=== PATIENT | female | born 2000 | race Caucasian/White ===

== ENCOUNTER → 2020-07-13 | Outpatient (CLI) | payer OTHER ==
[2020-07-13 13:51] LABS: FOLLICLE STIMULATING HORMONE 13.8 mIU/mL; FREE T4 1.01 NG/DL (0.76-1.46); LUTEINIZING HORMONE 67.7 mIU/mL; PROLACTIN 19.1 NG/ML; THYROID STIMULATING HORMONE 1.61 uIU/ML (0.358-3.740)
== END ==
LOC: M PLALAB 12:03
PROVIDERS: ATTEND Specialist
DX: N92.6 Irregular menstruation, unspecified (principal)

== ENCOUNTER → 2020-10-13 | Outpatient (REF) | payer OTHER | LOC: M SFHCWAGY 12:56 | PROVIDERS: ATTEND Nurse Practitioner Family | DX: Z12.4 Encounter for screening for malignant neoplasm of cervix (principal) | CPT/HCPCS: 87490; 87590; 87624; 87661; G0123; G0463 ==

== ENCOUNTER 2021-05-23 16:44 | Emergency (ER) | payer OTHER ==
[~2021-05-23] VITALS: Ht 162.6 cm; Wt 93.0 kg
[2021-05-23 16:47] VITALS: BP 131/81
[2021-05-23] MEDS ORDERED: IBUP200C25 PO (16:54)
[2021-05-23] MEDS ORDERED: CLOM50TA9 (16:54)
[2021-05-23] MEDS ORDERED: AUGMENTIN 875 MG TAB PO ONE (19:10)
[2021-05-23] MEDS ORDERED: AUGM875T28 PO (19:11)
== END 2021-05-23 19:36 | disposition home or self-care (01) ==
LOC: M ED 16:44
DX: K02.9 Dental caries, unspecified (principal); Z88.8 Allergy status to other drugs, medicaments and biological substances

== ENCOUNTER → 2021-07-26 | Outpatient (CLI) | payer OTHER ==
[~2021-07-26] MED LIST: AUGM875T28 PO; CLOM50TA9; IBUP200C25 PO
[2021-07-26 15:59] LABS: HEMATOCRIT 41.2 % (36.0-47.0); HEMOGLOBIN 13.5 g/dl (12.0-15.5); MEAN CORPUSCULAR HGB CONC 32.8 g/dl (32.0-36.5); MEAN CORPUSCULAR VOLUME 85.3 fl (80.0-96.0); PLATELET COUNT, AUTOMATED 297 10^3/uL (150-450); RED BLOOD COUNT 4.83 10^6/uL (4.00-5.40); WHITE BLOOD COUNT 11.1 10^3/uL (4.0-10.0)
[2021-07-26 17:05] LABS: HIV 1&2 SCREEN CENTAUR NEGATIVE (NEGATIVE)
[2021-07-26 17:14] LABS: GC DNA AMPLIFICATION NEGATIVE (NEGATIVE)
== END ==
LOC: M PLALAB 14:24
PROVIDERS: ATTEND Specialist
DX: Z34.01 Encounter for supervision of normal first pregnancy, first trimester (principal); Z3A.00 Weeks of gestation of pregnancy not specified

== ENCOUNTER → 2021-08-24 | Outpatient (CLI) | payer OTHER | LOC: M PLALAB 10:47 | PROVIDERS: ATTEND Specialist | DX: Z34.81 Encounter for supervision of other normal pregnancy, first trimester (principal); Z3A.00 Weeks of gestation of pregnancy not specified ==

== ENCOUNTER → 2021-10-12 | Outpatient (CLI) | payer OTHER ==
--- NOTE | 2021-10-12 12:26 | REP ---
INDICATION: ANATOMY COMPARISON: None. TECHNIQUE: Transabdominal obstetrical ultrasound with color Doppler evaluation. FINDINGS: Examination demonstrates a single live intrauterine in cephalic presentation. motion is identified by technologist. Placenta is noted anterior and grade 0 without evidence for placenta previa or abruption. Amniotic fluid volume is normal. Cervix measures 4.1 cm in length and appears closed.. Selected gestational age: 19 weeks 6 days with RONALD 03/02/2022. Gestational age by current measurements 19 weeks 2 days with RONALD 03/06/2022. FHR equals 147 beats per minute. BPD: 4.4 cm; 19 weeks 2 days; 36% HC: 16.4 cm; 19 weeks 1 day; 27% AC: 15.1 cm; 20 weeks 2 days; 61% FL: 3.0 cm; 19 weeks 1 day; 31% HL: 2.9 cm; 19 weeks 2 days; 41% HC/AC: 1.08 Estimated weight 307 grams (36thpercentile). Anatomical assessment demonstrates normal structures including cranium, choroid plexus, cavum, cerebellum/posterior fossa, facial features, lungs, diaphragm, stomach, cord insertion/three-vessel cord, kidneys/bladder, spine, and extremities. Limited evaluation of the nose/lips and heart/ventricular outflow tracts. IMPRESSION: Single live intrauterine in cephalic presentation demonstrating appropriate estimated weight. Anatomical limitations as noted above may warrant re-evaluation and follow-up. <Electronically signed by Brwon Bob > 10/12/21 7791
== END ==
LOC: M WHC 10:17
PROVIDERS: ATTEND Specialist
DX: Z36.9 Encounter for antenatal screening, unspecified (principal); Z3A.19 19 weeks gestation of pregnancy

== ENCOUNTER → 2021-12-03 | Outpatient (CLI) | payer OTHER ==
[2021-12-03 11:07] LABS: HEMATOCRIT 36.2 % (36.0-47.0); HEMOGLOBIN 11.8 g/dl (12.0-15.5); MEAN CORPUSCULAR HEMOGLOBIN 28.8 pg (27.0-33.0); MEAN CORPUSCULAR HGB CONC 32.6 g/dl (32.0-36.5); MEAN CORPUSCULAR VOLUME 88.3 fl (80.0-96.0); PLATELET COUNT, AUTOMATED 229 10^3/uL (150-450); WHITE BLOOD COUNT 14.3 10^3/uL (4.0-10.0)
[2021-12-03 15:23] LABS: GC DNA AMPLIFICATION NEGATIVE (NEGATIVE)
== END ==
LOC: M PLALAB 08:43
PROVIDERS: ATTEND Obstetrics & Gynecology
DX: Z34.02 Encounter for supervision of normal first pregnancy, second trimester (principal); Z3A.23 23 weeks gestation of pregnancy

== ENCOUNTER → 2021-12-10 | Outpatient (CLI) | payer OTHER | LOC: M WHC 08:53 | PROVIDERS: ATTEND Obstetrics & Gynecology | DX: Z34.02 Encounter for supervision of normal first pregnancy, second trimester (principal); Z3A.28 28 weeks gestation of pregnancy ==

== ENCOUNTER → 2021-12-17 | Outpatient (CLI) | payer OTHER | LOC: M LAB 07:46 | PROVIDERS: ATTEND Specialist | DX: O99.810 Abnormal glucose complicating pregnancy (principal) ==

== ENCOUNTER 2021-12-24 16:07 | Emergency (ER) | payer OTHER ==
[~2021-12-24] VITALS: Ht 162.6 cm; Wt 95.5 kg
[2021-12-24 16:08] VITALS: BP 119/73
[2021-12-24 18:35] LABS: RSV AMPLIFICATION NEGATIVE (NEGATIVE)
[2021-12-24] MEDS ORDERED: OSEL75CA PO (19:49)
== END 2021-12-24 19:58 | disposition home or self-care (01) ==
LOC: M ED 16:07
DX: O99.511 Diseases of the respiratory system complicating pregnancy, first trimester (principal); J09.X9 Influenza due to identified novel influenza A virus with other manifestations; R06.00 Dyspnea, unspecified; Z3A.00 Weeks of gestation of pregnancy not specified

== ENCOUNTER 2021-12-29 21:38 | Outpatient (CLI) | payer OTHER ==
[~2021-12-29] VITALS: Ht 162.6 cm; Wt 98.7 kg
[~2021-12-29 21:38] MED LIST changes: +OSEL75CA PO
[2021-12-29 21:57] VITALS: BP 127/63
[2021-12-29] MEDS ORDERED: HOME MED LIST COMPLETE! XX SCH (22:30)
== END 2021-12-29 22:20 | disposition home or self-care (01) ==
LOC: M LDO 21:38
PROVIDERS: ATTEND Advanced Practice Midwife
DX: O26.853 Spotting complicating pregnancy, third trimester (principal); Z3A.31 31 weeks gestation of pregnancy
CPT/HCPCS: 59025; G0378; G0463

== ENCOUNTER → 2022-02-02 | Outpatient (REF) | payer OTHER | LOC: M PLALAB 09:39 | PROVIDERS: ATTEND Specialist | DX: Z36.89 Encounter for other specified antenatal screening (principal); Z3A.00 Weeks of gestation of pregnancy not specified | CPT/HCPCS: 87081; G0463 ==

== ENCOUNTER → 2022-05-23 | Outpatient (CLI) | payer OTHER ==
[~2022-05-23] MED LIST changes: +ACET-683 PO; +IBUP80TA PO; +PREN1CHW6 PO
== END ==
LOC: M PLALAB 09:54
PROVIDERS: ATTEND Advanced Practice Midwife
DX: R68.82 Decreased libido (principal)

== ENCOUNTER → 2022-06-08 | Outpatient (CLI) | payer OTHER ==
[2022-06-08 15:36] LABS: BASO # 0.1 10^3/uL (0.0-0.2); EOS # 0.2 10^3/uL (0.0-0.5); EOS % 2.7 % (0.0-3.0); HEMATOCRIT 43.3 % (36.0-47.0); HEMOGLOBIN 13.6 g/dl (12.0-15.5); LYMPH # 2.1 10^3/uL (1.5-5.0); LYMPH % 26.1 % (24.0-44.0); MEAN CORPUSCULAR HEMOGLOBIN 26.4 pg (27.0-33.0); MEAN CORPUSCULAR HGB CONC 31.4 g/dl (32.0-36.5); MEAN CORPUSCULAR VOLUME 83.9 fl (80.0-96.0); MONO # 0.4 10^3/uL (0.0-0.8); MONO % 5.3 % (2.0-8.0); NEUTROPHILS # 5.1 10^3/uL (1.5-8.5); NEUTROPHILS % 64.5 % (36.0-66.0); PLATELET COUNT, AUTOMATED 299 10^3/uL (150-450); RED BLOOD COUNT 5.16 10^6/uL (4.00-5.40); WHITE BLOOD COUNT 7.9 10^3/uL (4.0-10.0)
[2022-06-08 15:45] LABS: INR 0.94
[2022-06-08 15:46] LABS: PARTIAL THROMBOPLASTIN TIME 39.7 SECONDS (25.9-37.0)
[2022-06-08 15:51] LABS: ALBUMIN 3.8 GM/DL (3.2-5.2); ALT/SGPT 62 U/L (12-78); BILIRUBIN,TOTAL 0.3 MG/DL (0.2-1.0); BLOOD UREA NITROGEN 17 MG/DL (7-18); CALCIUM LEVEL 9.2 MG/DL (8.5-10.1); CARBON DIOXIDE LEVEL 24 MEQ/L (21-32); CHLORIDE LEVEL 108 MEQ/L (98-107); CREATININE FOR GFR 0.78 MG/DL (0.55-1.30); GLOMERULAR FILTRATION RATE > 60.0 (>60); GLUCOSE, FASTING 75 MG/DL (70-100); POTASSIUM SERUM 4.5 MEQ/L (3.5-5.1); SODIUM LEVEL 139 MEQ/L (136-145); TOTAL PROTEIN 8.2 GM/DL (6.4-8.2)
== END ==
LOC: M PLALAB 12:07
PROVIDERS: ATTEND Nurse Practitioner Family
DX: R23.3 Spontaneous ecchymoses (principal)

== ENCOUNTER → 2022-08-17 | Outpatient (REF) | payer OTHER | LOC: M SFHCWAGY 13:03 | PROVIDERS: ATTEND Specialist | DX: Z01.419 Encounter for gynecological examination (general) (routine) without abnormal findings (principal) | CPT/HCPCS: G0123; G0463 ==

== ENCOUNTER 2024-04-14 13:21 | Emergency (ER) | payer OTHER ==
[~2024-04-14] VITALS: Ht 162.6 cm; Wt 84.5 kg
[~2024-04-14 13:21] MED LIST changes: +DESM1SPR; +TRAN650T PO
[2024-04-14 14:33] LABS: BASO # 0.1 10^3/uL (0.0-0.2); BASO % 0.8 % (0.0-1.0); EOS # 0.1 10^3/uL (0.0-0.5); EOS % 1.2 % (0.0-3.0); HEMATOCRIT 43.7 % (36.0-47.0); HEMOGLOBIN 14.4 g/dl (12.0-15.5); LYMPH % 20.9 % (24.0-44.0); MEAN CORPUSCULAR HEMOGLOBIN 28.8 pg (27.0-33.0); MEAN CORPUSCULAR VOLUME 87.4 fl (80.0-96.0); MONO # 0.5 10^3/uL (0.0-0.8); NEUTROPHILS % 71.8 % (36.0-66.0); PLATELET COUNT, AUTOMATED 271 10^3/uL (150-450); WHITE BLOOD COUNT 9.7 10^3/uL (4.0-10.0)
[2024-04-14 14:44] LABS: LIPASE 40 U/L (12-53)
[2024-04-14 14:46] LABS: ALBUMIN 4.1 G/DL (3.2-5.2); ALKALINE PHOSPHATASE 67 U/L (46-116); ALT/SGPT 20 U/L (7.0-40); AST/SGOT 11 U/L (<34); BILIRUBIN,DIRECT 0.1 MG/DL (<0.4); BILIRUBIN,TOTAL 0.3 MG/DL (0.3-1.2); TOTAL PROTEIN 7.9 G/DL (5.7-8.2)
[2024-04-14 14:52] LABS: HCG, SERUM QUALITATIVE NEGATIVE (NEGATIVE)
[2024-04-14 17:16] VITALS: BP 118/74; TEMP 98.3; O2SAT 97
== END 2024-04-14 17:25 | disposition home or self-care (01) ==
LOC: M ED 13:21
DX: N93.9 Abnormal uterine and vaginal bleeding, unspecified (principal); R19.7 Diarrhea, unspecified; Z88.8 Allergy status to other drugs, medicaments and biological substances; Z79.810 Long term (current) use of selective estrogen receptor modulators (SERMs)